=== PATIENT | female | born 1960 | race Caucasian/White ===

== ENCOUNTER 2020-04-16 10:25 | Outpatient (CLI) | payer BC, SELFPAY ==
--- NOTE | ~2020-04-16 | MM_ITS ---
EXAMINATION: MM screening karyna BI w kena HISTORY: Screening mammogram TECHNIQUE: Craniocaudal and mediolateral oblique 3-D tomosynthesis images were obtained and synthetic 2-D images were generated. CAD analysis was submitted and interpreted. COMPARISON: No prior mammogram is available for comparison at this institution. BREAST PARENCHYMAL COMPOSITION: There are scattered areas of fibroglandular density. FINDINGS: There is no evidence of suspicious mass, calcification, or architectural distortion to sugg est malignancy in either breast. IMPRESSION: 1. No mammographic evidence of malignancy. 2. Recommend routine screening mammography in one year. BI-RADS Category 1: Negative Reviewed, dictated and finalized at location A.
== END 2020-04-16 10:26 | disposition home or self-care (01) ==
PROVIDERS: PCP Internal Medicine; Visit Provider Internal Medicine
DX: Z12.31 Encounter for screening mammogram for malignant neoplasm of breast (principal)
CPT/HCPCS: 77063; 77067

== ENCOUNTER 2024-02-29 07:52 | Outpatient (CLI) | payer OTHER, SELFPAY ==
[2024-02-29 10:02] LABS: Hematocrit 44.6 % (37.0-47.0); Hemoglobin 13.9 g/dL (12.0-15.0)
== END 2024-02-29 07:53 | disposition home or self-care (01) ==
LOC: ANHSURGERY 08:00
PROVIDERS: Visit Provider Obstetrics & Gynecology
DX: Z01.818 Encounter for other preprocedural examination (principal); R93.89 Abnormal findings on diagnostic imaging of other specified body structures
CPT/HCPCS: 36415; 85014; 85018

== ENCOUNTER 2024-03-08 00:23 | Day surgery (SDC) | payer OTHER, SELFPAY ==
[2024-02-23 14:53] VITALS: BMI 36.9
--- NOTE | 2024-02-23 15:29 | PC.NURSE ---
Report to the Outpatient Waiting Room, entrance under the green pavilion located off [facility], at time _0715__ on date __03/08/24 . Planned Procedure Time: __914 . Time changes happen often and if your time is changed the preop area will call you the afternoon before. - You and your visitor will be asked to self-screen and do not enter if you have any COVID symptoms. - A mask is optional within the hospital at this time. Patients may have clear liquids (water, carbonated beverages, clear teas, apple juice) until 3 hours prior to surgery with a maximum of 20 ounces. - No food from midnight until time of surgery - Infants may have breast milk until 4 hours before surgery, formula 6 hours prior to surgery. - Children will be allowed to drink immediately following surgery. If applicable, please bring a bottle or sippy cup to assist with drinking. Juice, water, soda, and popsicles are readily available. For infants on formula, please bring formula the day of surgery. Pacifiers are allowed. Take the following medications with a SIP of water the morning of surgery: _Hydrochloroquine, Levothyroxine, Doxycycline DO NOT STOP ANY OF YOUR OTHER PRESCRIPTION MEDICATIONS PRIOR TO SURGERY ?EXCEPT THE FOLLOWING Medications to discontinue per physician ___Vitamins and supplements 3 days prior Please no make-up, nail latvian, hairspray, perfume, deodorant, or body powder the day of surgery. No jewelry (including any body piercings) or valuables the day of surgery, leave them at home. Please take a shower or bath the night before, or the morning of, surgery with an antibacterial soap. Wear comfortable, loose fitting clothing. Children are encouraged to wear pajamas. - Jewelry must be removed prior to entering the operating room. Rings and piercings that are not removed may be cut off. - The hospital will not accept responsibility for valuables. - Please leave all valuables, including medications, at home the day of surgery. If you are going home after surgery, a licensed garbage collector driver must drive you home. - NO public transportation without another adult if you receive anesthesia. - We recommend that an adult stay with you for 24 hours following discharge. - We also recommend that you do not drive, make important decision, drink alcoholic beverages, or take any drugs that were not prescribed by your health care provider for at least 24 hours after your discharge time. Follow any additional instructions given to you from your surgeon. If you or anyone in your household have experienced Covid symptoms in the past week, please notify your surgeon or the nurse liaison at the phone number below for possible testing. Telephone instructions given to _KIM and asked if any additional questions and then verbalized understanding. Patient advised to call surgeon office or pre surgery nurse liaison [phone] if any additional questions.
--- NOTE | 2024-03-05 16:10 | PM.IMHP ---
H&P: HPI History of Present Illness Date/Time: 03/05/24 16:10 Chief Complaint: thickened endometrial imaging Narrative: she 3-year-old female who underwent a CT scan for GI reasons and thickened endometrium was found. She had a Pap that was she never took hormones and she has seems to be a relatively unremarkable history assured of a history of thyroid. The [facility] before the patient will undergo hysteroscopy/ dilatation curettage secondary to this thickened endometrium. Risks and benefits reviewed including but not exclusive of , aspiration pneumonia, bleeding, transfusion, perforation injury to bowel, bladder, ureters, or other internal organs with need for open laparotomy. She received the AC handouts entitled hysteroscopy as well as stool tissue curettage. She had all questions answered. She asked to proceed. [facility] Past Medical History Medical History Arthritis Diabetes Foot pain, right (~07/2021) Hyperparathyroidism Migraines Rheumatoid arthritis, seropositive, multiple sites Skin cancer of arm (~08/2021) Stroke Thyroid disorder Surgical History Surgical History Delivery by section History of recent maxillofacial surgery History of thyroid surgery Family History Family History Father Emphysema lung CHF (congestive heart failure) Grandparent Cancer Tuberculosis Social History Social History Smoking status: Never smoker Alcohol intake: never Substance use: never Substance use type: does not use Lack of Transportation: No Lack of Food: Never True Current Housing: I Have Housing Concerned About Future Housing: No Difficulty Paying Gas/Electric Bills: No Difficulty Paying for Meds: No Currently Unemployed: No Education: Decline to Answer Difficulty w/ Childcare or Family Care: No Living arrangements: with family Spiritual care concerns: No Meds Home Medications and Allergies Home Medications Medication Instructions Recorded Confirmed Type atorvastatin 20 mg tablet 20 mg PO DAILY 11/04/20 02/23/24 History cholecalciferol (vitamin D3) 10 10 mcg PO DAILY 01/12/21 02/23/24 History mcg (400 unit) capsule psyllium husk 0.4 gram capsule 0.4 g PO DAILY 03/17/22 02/23/24 History (Metamucil) abatacept 125 mg/mL subcutaneous 125 mg subcut WEEKLY #4 mL 11/23/23 02/23/24 Rx auto-injector (Orencia ClickJect) hydroxychloroquine 200 mg tablet 400 mg PO DAILY #180 tabs 01/04/24 02/23/24 Rx benzoyl peroxide 5 % topical cream 1 applic topical DAILY 02/23/24 02/23/24 History (Epsolay) calcium citrate 600 mg PO QID 02/23/24 02/23/24 History ceramides 1,3,6-II (CeraVe topical 1 applic topical DAILY 02/23/24 02/23/24 History cleanser) doxycycline hyclate 20 mg tablet 20 mg PO BID 02/23/24 02/23/24 History fluticasone propionate 50 1 spray intranasal BID 02/23/24 02/23/24 History mcg/actuation nasal spray,suspension hyoscyamine sulfate 0.125 mg 0.125 mg PO Q4H PRN Abdominal Pain 02/23/24 02/23/24 History disintegrating tablet levothyroxine 200 mcg tablet 225 mcg PO DAILY 02/23/24 02/23/24 History pantoprazole 40 mg tablet,delayed 40 mg PO BID 02/23/24 02/23/24 History release pimecrolimus 1 % topical cream 1 applic topical BID 02/23/24 02/23/24 History Allergies Allergy/AdvReac Type Severity Reaction Status Date / Time meperidine Allergy Unknown shaking Verified 02/23/24 14:34 Penicillins Allergy Unknown Rash Verified 02/23/24 14:34 Exam Const: General: cooperative and comfortable Nutritional Appearance: overweight Orientation/consciousness: oriented to person, oriented to place and oriented to time Chest: Chest palpation & inspection: normal inspection of the chest Resp: Effort & Inspection: normal respiratory effort Cardio: Rate: regular rate Rhythm: regular rhythm Heart sounds: S1 normal heart sound present and S2 normal heart sound present GI: Inspection: normal to inspection and obesity Auscultation: normal bowel sounds : External Female Exam: normal external appearance Speculum Exam - Vagina: normal appearance of the vagina Speculum Exam - Cervix: normal appearance of the cervix Bimanual exam- vagina & uterus: enlarged Bimanual Exam- Adnexa, other: normal adnexae Assessment and Plan Assessment and plan (1) Postmenopausal bleeding: Code(s): N95.0 - Postmenopausal bleeding Status: Acute Plan hysteroscopy/dilatation curettage
--- NOTE | 2024-03-08 06:36 | WPDHPUPDATE1 ---
History and Physical Update Update Date/Time: 03/08/24 06:36 History and Physical has been reviewed, including an updated exam of the patient. There are NO changes in the patient's condition. Risks, benefits, and alternatives have been discussed and questions answered. Patient agrees to proceed with procedure.
--- NOTE | 2024-03-08 07:22 | WPDANESEPPF ---
Anes - Initial Pre Proc Eval Procedure: Operation Date: 03/08/24 08:15 Proposed Procedures p Hysteroscopy Dilation and Curettage - Gurinder Olson MD Date/Time: 03/08/24 07:22 Surgeon: Gurinder Olson MD Pre Op Diagnosis: thickened endometrial lining Patient Data Age: 63 Gender: F Height: 1.8 m Weight: 120.2 kg Last Vital Signs O2 Del Method Room Air 02/23/24 14:53 Allergies Allergy/AdvReac Type Severity Reaction Status Date / Time meperidine Allergy Unknown shaking Verified 02/23/24 14:34 Penicillins Allergy Unknown Rash Verified 02/23/24 14:34 Home Medications Medication Instructions Recorded Confirmed Type atorvastatin 20 mg tablet 20 mg PO DAILY 11/04/20 02/23/24 History cholecalciferol (vitamin D3) 10 10 mcg PO DAILY 01/12/21 02/23/24 History mcg (400 unit) capsule psyllium husk 0.4 gram capsule 0.4 g PO DAILY 03/17/22 02/23/24 History (Metamucil) abatacept 125 mg/mL subcutaneous 125 mg subcut WEEKLY #4 mL 11/23/23 02/23/24 Rx auto-injector (Orencia ClickJect) hydroxychloroquine 200 mg tablet 400 mg PO DAILY #180 tabs 01/04/24 02/23/24 Rx benzoyl peroxide 5 % topical cream 1 applic topical DAILY 02/23/24 02/23/24 History (Epsolay) calcium citrate 600 mg PO QID 02/23/24 02/23/24 History ceramides 1,3,6-II (CeraVe topical 1 applic topical DAILY 02/23/24 02/23/24 History cleanser) doxycycline hyclate 20 mg tablet 20 mg PO BID 02/23/24 02/23/24 History fluticasone propionate 50 1 spray intranasal BID 02/23/24 02/23/24 History mcg/actuation nasal spray,suspension hyoscyamine sulfate 0.125 mg 0.125 mg PO Q4H PRN Abdominal Pain 02/23/24 02/23/24 History disintegrating tablet levothyroxine 200 mcg tablet 225 mcg PO DAILY 02/23/24 02/23/24 History pantoprazole 40 mg tablet,delayed 40 mg PO BID 02/23/24 02/23/24 History release pimecrolimus 1 % topical cream 1 applic topical BID 02/23/24 02/23/24 History hydrocodone 5 mg-acetaminophen 325 1 tablet PO Q4H PRN pain #14 tabs 03/08/24 Rx mg tablet Patient hx anesthesia problems: none Family hx anesthesia problems: none Results Review: All pre-operative results and documents have been reviewed as part of the pre-operative evaluation. [facility] Past Medical History Medical History Arthritis Diabetes Foot pain, right (~07/2021) Hyperparathyroidism Migraines Rheumatoid arthritis, seropositive, multiple sites Skin cancer of arm (~08/2021) Stroke Thyroid disorder Surgical History Surgical History Delivery by section History of recent maxillofacial surgery History of thyroid surgery Family History Family History Father Emphysema lung CHF (congestive heart failure) Grandparent Cancer Tuberculosis Social History Social History Smoking status: Never smoker Alcohol intake: never Substance use: never Substance use type: does not use Lack of Transportation: No Lack of Food: Never True Current Housing: I Have Housing Concerned About Future Housing: No Difficulty Paying Gas/Electric Bills: No Difficulty Paying for Meds: No Currently Unemployed: No Education: Decline to Answer Difficulty w/ Childcare or Family Care: No Living arrangements: with family Spiritual care concerns: No Anes - Eval Final PreProcedure Day of Procedure 03/08/24 07:22 Patient weight: normal Heart: regular rate and rhythm Lungs: clear to auscultation Airway: Mallampati scale and special considerations (Missing lower R teeth. ) Neurological: alert and oriented Last oral intake: >/= 8 hours ASA classification: III Emergent: no Anesthetic plan: proceed Anesthesia type and monitoring: general GIVS and standard monitoring Results Review: All pre-operative results and documents have been reviewed as part of the pre-operative evaluation. Hx of thyroid ca, parathyroid disease, TIA without residual. Informed Consent: The patient's anesthetic plan and its attendant risks and benefits were discussed with the patient/family/POA. Questions were solicited and answers provided to the satisfaction of the patient/family/POA.
[2024-03-08] MEDS: LACTATED RINGERS 1,000 ML 30 ML IV CONT (07:25)
[2024-03-08] MEDS: ACETAMINOPHEN 500 MG TABLET 1000 MG PO (07:25)
[2024-03-08 07:35] VITALS: BP 120/64; PULSE 64; RESP 14; TEMP 36.6; O2SAT 96
[2024-03-08] MEDS: LIDOCAINE HCL 1% LOCAL INJ 10 ML VIAL INFILTRATE (08:12)
--- NOTE | 2024-03-08 08:22 | W.PM.PROC2 ---
Procedure Note - Detailed Date of Procedure 03/08/24 Pre-op Diagnosis thickened endometrial lining Post-op Diagnosis Other (Endometrial polyp) Procedure Performed hysteroscopy/ polypectomy/dilatation and curettage Surgeon Gurinder Olson MD Anesthesia MAC and Local Indications 63-year-old female with postmenopausal bleeding thickened endometrium Findings 2 fairly large polyps which had a fairly benign look to the Description of Procedure patient was prepped draped in the normal sterile fashion placed in the dorsal lithotomy position. Under excellent IV sedation weighted speculum placed in posterior fornix vagina. Anterior lip of the cervix grasped with single-tooth tenaculum. 2.5cc 1% xylocaine anesthesia placed at 2, 4, 8, 10:00 a.m. of the cervix. Uterus sounded to 10cm. Serial dilatation with fragmented dilators performed followed by passage of the of the to the hysteroscope. Normal saline was used as visualizing medium. Two large polyps were seen and these were removed by using the Roticulator until flush with the surface of the endometrium. The instruments were withdrawn the patient was awakened. Blood loss was estimated 5cc. All sponge, needle, instrument there were no immediate complications Estimated Blood Loss 5 Drains No Packing No Pathology Yes Complications No immediate complications Condition Stable Disposition PACU
[2024-03-08 08:25] VITALS: BP 105/58; PULSE 54; RESP 14; O2SAT 97
[2024-03-08 08:55] VITALS: BP 139/69; PULSE 50
[2024-03-08 09:20] VITALS: BP 154/92; PULSE 58
== END 2024-03-08 09:31 | disposition home or self-care (01) ==
PROVIDERS: Visit Provider Obstetrics & Gynecology
PROC: 0U5B8ZZ Destruction of Endometrium, Via Natural or Artificial Opening Endoscopic (ICD-10-PCS; CPT 58563; principal; 2024-03-08 08:15)
DX: N95.0 Postmenopausal bleeding (principal); N84.0 Polyp of corpus uteri; E11.9 Type 2 diabetes mellitus without complications; E21.3 Hyperparathyroidism, unspecified; M05.89 Other rheumatoid arthritis with rheumatoid factor of multiple sites; Z79.620 Long term (current) use of immunosuppressive biologic
CPT/HCPCS: 58558; 36415; 85014; 85018; 88305; A9270; J2704; J3010; J7120